=== PATIENT | female | born 1955 | race Caucasian/White ===

== ENCOUNTER 2018-08-15 14:45 | Inpatient (IN) | payer OTHER ==
[2018-08-15 14:50] VITALS: BMI 46.0
--- NOTE | 2018-08-15 14:57 | PDOC ---
Rapid Medical Evaluation Chief Complaint: Hemorrhoids Time Seen by Provider: 08/15/18 14:51 Medical Evaluation: Allergies Allergy/AdvReac Type Severity Reaction Status Date / Time No Known Allergies Allergy Verified 08/15/18 14:50 Vital Signs Temp Pulse Resp BP Pulse Ox 98.0 F 104 H 18 154/85 96 08/15/18 14:47 08/15/18 14:47 08/15/18 14:47 08/15/18 14:47 08/15/18 14:47 08/15/18 14:53 I have performed a brief in-person evaluation of this patient. The patient presents with a chief complaint of: sent for admission for Hemorhoidectomy tomorrow - thrombosed hemorhoid Pertinent physical exam findings: pain/ amb I have ordered the following: CBC, CmP, InR, Type and screen, CXR, UA The patient will proceed to the ED for further evaluation. Discharge Disposition - Diagnosis Thrombosed hemorrhoids - Referrals - Patient Instructions - Post Discharge Activity
--- NOTE | 2018-08-15 15:03 | PDOC ---
History of Present Illness - General Chief Complaint: Hemorrhoids Stated Complaint: SENT BY PCP Time Seen by Provider: 08/15/18 14:51 - History of Present Illness Initial Comments: 08/15/18 16:31 The patient is a 63 year old female with a history of HTN who presents for admission for a thrombosed hemorrhoid. The patient reports a 10 day history of worsening rectal pain especially with straining. She was evaluated by her surgeon Dr. Forbes who sent the patient for admission for an inpatient thrombectomy in the OR tomorrow. The patient otherwise denies fevers, chills, SOB, chest, pain, nausea, vomiting, abdominal pain, or changes with urination. Past History - Past Medical History Allergies/Adverse Reactions: Allergies Allergy/AdvReac Type Severity Reaction Status Date / Time No Known Allergies Allergy Verified 08/15/18 14:50 Home Medications: Ambulatory Orders Aspirin [ASA -] 81 mg PO DAILY 08/15/18 Atorvastatin Ca [Lipitor] 20 mg PO HS 08/15/18 Losartan Potassium 50 mg PO DAILY 08/15/18 Metoprolol Succinate 25 mg PO DAILY 08/15/18 Ranitidine [Zantac -] 150 mg PO DAILY 08/15/18 COPD: No HTN: Yes - Surgical History Appendectomy: Yes - Suicide/Smoking/Psychosocial Hx Smoking History: Never smoked Review of Systems - Review of Systems Comments:: 08/15/18 16:33 Constitutional: No fevers, chills, fatigue, malaise HEENT: No Rhinorrhea, nasal congestion, visual changes Cardiovascular: No chest pain, syncope, palpitations, lightheadedness Respiratory: No Cough, SOB, Hemoptysis, Gastrointestinal: Rectal pain. No Abdominal pain, Nausea, Vomiting, Constipation, Diarrhea, Melena Genitourinary: No Dysuria, Frequency, Urgency, Hesitancy, Hematuria, Flank pain Musculoskeletal: No Myalgia, arthralgia Skin: No rashes, itching, bruising, pallor Neurologic: No Headache, Dizziness, Numbness, Weakness, or Tingling Psychiatric: No Hallucinations. No SI or HI *Physical Exam - Vital Signs Last Vital Signs Temp Pulse Resp BP Pulse Ox 98.0 F 104 H 18 154/85 96 08/15/18 14:47 08/15/18 14:47 08/15/18 14:47 08/15/18 14:47 08/15/18 14:47 - Physical Exam Comments: 08/15/18 16:33 General Appearance: Nourished. No Apparent Distress HEENT: No Pharyngeal Erythema, Tonsillar Exudate, Tonsillar Erythema Neck: No Cervical Lymphadenopathy Respiratory/Chest: Lungs Clear, Normal Breath Sounds. No Crackles, Rales, Rhonchi, Wheezing Cardiovascular: Regular Rhythm, Regular Rate. No Murmur, Gallops, Rubs Gastrointestinal/Abdominal: Thrombosed rectal hemorrhoid noted on exam. Normal Bowel Sounds, Soft. No Guarding, Rebound, Tenderness Musculoskeletal: No CVA Tenderness Extremity: Normal Capillary Refill Integumentary: Normal Color, Dry, Warm Neurologic: Fully Oriented, Alert, Normal Mood/Affect, Normal Response, ED Treatment Course - LABORATORY CBC & Chemistry Diagram: 08/15/18 15:28 08/15/18 17:19 Medical Decision Making - Medical Decision Making 08/15/18 16:34 The patient is a 63 year old female with a history of HTN who presents for admission for a thrombosed hemorrhoid. Given the patient's history and physical exam, we will obtain a cbc, cmp, chest plain film, coags, ua, ekg to evaluate further. The patient will require admission for further management. We will continue to monitor and reassess while here in the ED. 08/15/18 18:56 CBC, cmp, coags are unremarkable. We discussed the case with the admitting team who accepted the patient for admission. The patient's surgeon Dr. Forbes has evaluated the patient here in the ED. *DC/Admit/Observation/Transfer Diagnosis at time of Disposition: Thrombosed hemorrhoids - Discharge Dispostion Condition at time of disposition: Stable Decision to Admit order: Yes - Referrals Referrals: Ayush Bush [Primary Care Provider] - - Patient Instructions - Post Discharge Activity
[2018-08-15 15:43] LABS: BASO % 0.8 % (0-2.0); EOS % 0.5 % (0-4.5); HEMATOCRIT 40.8 % (32.4-45.2); HEMOGLOBIN 14.1 GM/dL (10.7-15.3); LYMPH % 39.4 % (8-40); MCH 32.3 pg (25.7-33.7); MCHC 34.5 g/dl (32.0-36.0); MEAN CELL VOLUME 93.6 fl (80-96); MEAN PLT VOLUME 9.1 fl (7.5-11.1); MONO % 9.1 % (3.8-10.2); NEUT % 50.2 % (42.8-82.8); PLATELET COUNT 236 K/MM3 (134-434); RBC 4.36 M/mm3 (3.60-5.2); RDW 13.3 % (11.6-15.6); WHITE BLOOD COUNT 5.8 K/mm3 (4.0-10.0)
[2018-08-15] MEDS ORDERED: ACETAMINOPHEN 1000 MG/100 ML VIAL (NON FORMULARY) IVPB ONE (16:04)
[2018-08-15] MEDS ORDERED: ACETAMINOPHEN INJECTION 100 ML IVPB ONE (16:46)
--- NOTE | 2018-08-15 17:04 | PDOC ---
Attending Attestation - Resident Resident Name: Jayy Espino - ED Attending Attestation I have performed the following: I have examined & evaluated the patient, The case was reviewed & discussed with the resident, I agree w/resident's findings & plan, Exceptions are as noted - Medical Decision Making 08/15/18 17:02 A portion of this note was documented by scribe services under my direction. I have reviewed the details of the note, within reason, and agree with the documentation with the following case summary and management plan written by me. Patient treated in the ED. Nursing notes are reviewed and incorporated into the medical decision-making. Vital signs reviewed. Peripheral IV access obtained by the nurse, laboratory studies are drawn and sent, reviewed and interpreted by myself. 63-year-old female history of hypertension and hemorrhoids sent information for our tomorrow for hemorrhoid procedure. Currently has no other complaints. This will be operated by Dr. Raghu Forbes. Pre-op labs and admit. <Abel Millan - Last Filed: 08/15/18 17:01> - HPI HPI: 08/15/18 17:04 Patient is a 63 year old female with a significant past medical history of HTN, who presents to the ED with complaints of increased rectal pain. Patient reports experiencing rectal pain that she states began x10 days ago and has been gradually increasing in intensity over time, prompting her to come into the ED for further evaluation. She reports being evaluated by her Surgeon Dr. Forbes, stating he sent her into the ED to be admitted to be sent to the OR for a thrombectomy scheduled for tomorrow. Denies chest pain, Sob. Denies nausea, vomiting. Denies contact with sick individuals, out of state travelling. Denies fevers, chills. Denies dysuria, hematuria. Denies diarrhea, constipation. Denies any other symptoms. Allergies: None Social history: No smoking. No alcohol. No illicit drugs. Surgical history: Appendectomy PMD: Dr. Ayush Bush - Physicial Exam PE: 08/15/18 17:04 GENERAL: Awake, alert, and fully oriented, in no acute distress HEAD: No signs of trauma EYES: PERRLA, EOMI, sclera anicteric, conjunctiva clear ENT: Auricles normal inspection, hearing grossly normal, nares patent.Moist mucosa NECK: Normal ROM, supple, JVD, or masses EXTREMITIES: Normal range of motion, no edema. No clubbing or cyanosis. No cords, erythema, or tenderness NEUROLOGICAL: Cranial nerves II through XII grossly intact. Normal speech, normal gait SKIN: Warm, Dry, normal turgor, no rashes or lesions noted. <iNcolas Gupta - Last Filed: 08/15/18 17:04>
[2018-08-15 18:25] LABS: ALK PHOS 98 U/L (45-117); ANION GAP 8 MMOL/L (8-16); BILIRUBIN,TOTAL 0.7 mg/dL (0.2-1); BLOOD UREA NITROGEN 14 mg/dL (7-18); CALCIUM 9.6 mg/dL (8.5-10.1); CHLORIDE 103 mmol/L (98-107); CO2 31 mmol/L (21-32); CREATININE 1.1 mg/dL (0.55-1.3); GLUCOSE,RANDOM 112 mg/dL (74-106); POTASSIUM 4.5 mmol/L (3.5-5.1); SGOT/AST 37 U/L (15-37); SGPT/ALT 37 U/L (13-61); SODIUM 142 mmol/L (136-145); TOT PROT 7.8 g/dl (6.4-8.2)
[2018-08-15] MEDS ORDERED: BISACODYL 5 MG TABLET.DR (FP) PO ONE (18:46)
--- NOTE | 2018-08-15 18:52 | CONSULT ---
Consult Consult Specialty:: Surgery Reason for Consultation:: Thrombosed hemorrhoids - History of Present Illness History of Present Illness: C/O pain and swelling around the rectum and anal canal for over 10 days. - History Source History Provided By: Patient, Family Member - Smoking History Smoking history: Never smoked Home Medications - Allergies Allergies/Adverse Reactions: Allergies Allergy/AdvReac Type Severity Reaction Status Date / Time No Known Allergies Allergy Verified 08/15/18 14:50 - Home Medications Home Medications: Ambulatory Orders Aspirin [ASA -] 81 mg PO DAILY 08/15/18 Atorvastatin Ca [Lipitor] 20 mg PO HS 08/15/18 Losartan Potassium 50 mg PO DAILY 08/15/18 Metoprolol Succinate 25 mg PO DAILY 08/15/18 Ranitidine [Zantac -] 150 mg PO DAILY 08/15/18 Physical Exam Vital Signs: Vital Signs Temperature 98.0 F 08/15/18 14:47 Pulse Rate 104 H 08/15/18 14:47 Respiratory Rate 18 08/15/18 14:47 Blood Pressure 154/85 08/15/18 14:47 O2 Sat by Pulse Oximetry (%) 96 08/15/18 14:47 Gastrointestinal: Yes: Hemorrhoids (:arge thrombosed internal-external hemorrhoid at 5 O'clock position, not resoving, and very tender.) Labs: CBC, BMP 08/15/18 15:28 08/15/18 17:19 Problem List - Problems (1) Thrombosed hemorrhoids Code(s): K64.5 - PERIANAL VENOUS THROMBOSIS Assessment/Plan Thrombosed hemorrhoids, Plan: Excision of thrombosed hemorrhoids tomorrow, proctosigmoidoscopy, tomorrow on 08/16/2018.
[2018-08-15 19:20] LABS: INR 1.16 (0.83-1.09); PROTHROMBIN TIME (PATIENT) 13.7 SEC (9.7-13.0)
--- NOTE | 2018-08-15 19:25 | PN ---
Teaching Attending Note Name of Resident: Maria G Edwards ATTENDING PHYSICIAN STATEMENT I saw and evaluated the patient. I reviewed the resident's note and discussed the case with the resident. I agree with the resident's findings and plan as documented. SUBJECTIVE: Patient is a 63 year old woman with a history of HTN who presents for admission for a thrombosed rectal hemorrhoid. The patient reports a 10 day history of worsening rectal pain especially with straining. She was evaluated by her surgeon Dr. Forbes who sent the patient for admission for an inpatient thrombectomy in the OR tomorrow. The patient otherwise denies fevers, chills, SOB, chest, pain, nausea, vomiting, abdominal pain, or changes with urination. OBJECTIVE: Alert Vital Signs Period Temp Pulse Resp BP Sys/Sun Pulse Ox Last 24 Hr 98.0 F 104 18 154/85 96 HEENT: No Jaundice, eye redness or discharge, PERRLA, EOMI. Normocephalic, atraumatic. External ears are normal and hearing is grossly intact. No nasal discharge. Neck: Supple, nontender. No palpable adenopathy or thyromegaly. No JVD Chest: Good effort. Clear to auscultation and percussion. Heart: Regular. No S3, rub or murmur Abdomen: Not distended, soft, nontender and no HSM. No rebound or guarding. Normoactive bowel sounds. Ext: Peripheral pulses intact. No leg edema. Has thrombosed external hemorrhoids with tender rectal exam. Skin: Warm and dry. No petechiae, rash or ecchymosis. Neuro: Alert. Oriented x3. CN 2-12 grossly intact. Sensation grossly intact in all four extremities and DTR are symmetric. Home Medications Medication Instructions Recorded Aspirin [ASA -] 81 mg PO DAILY 08/15/18 Atorvastatin Ca [Lipitor] 20 mg PO HS 08/15/18 Losartan Potassium 50 mg PO DAILY 08/15/18 Metoprolol Succinate 25 mg PO DAILY 08/15/18 Ranitidine [Zantac -] 150 mg PO DAILY 08/15/18 Abnormal Lab Results 08/15/18 08/15/18 15:28 17:19 PT with INR 13.70 H INR 1.16 H Random Glucose 112 H ASSESSMENT AND PLAN: 1. Thrombosed rectal hemorrhoids - Scheduled for surgical excision tomorrow. Send blood for type and cross, get EKG, keep her NPO. Restart home antihypertensive drugs. 2. Morbid Obesity - Will provide patient all the necessary assistance, counseling and positive reinforcement to facilitate weight loss. Consult equipment application specialist. 3. DVT prophylaxis - Heparin 5000u sq tid; SCD, TEDs. 4. Advance directives - Full code
[2018-08-15] MEDS ORDERED: HEPARIN NA (PORCINE) 5,000 UNITS/ML 1ML VIAL SQ ONE (20:23)
--- NOTE | 2018-08-15 20:28 | HP ---
CHIEF COMPLAINT: sent from Dr. Forbes for excision of thrombosed hemorrhoids PCP: HISTORY OF PRESENT ILLNESS: Patient is a 63 y/o female with a history of hypertension who presents from the office of Dr. Forbes for the excision of thrombosed hemorrhoids tomorrow. Patient has perirectal pain that she describes as pinching and hot. She has never had this pain before and it does not radiate. Creams have not helped the pain and straining makes the pain worse. The pain began 10 days ago. She first saw her GI doctor in the [place] who prescribed her a cream that she reports did not help. She followed up with the ED who examined her and she reports the pain was much worse after the examination. She saw Dr. Forbes on Sunday and again today who decided she should come to the hospital for surgery tomorrow. Patient has had no adverse reactions to past surgeries, only allergic reaction to contrast in which she went into "shock". Patient denies fever, chills, chest pain, shortness of breath, or headache. Patient did not take her home medications today. ER course was notable for: (1) ofirmev (2) ducolax (3) Recent Travel: PAST MEDICAL HISTORY: HTN PAST SURGICAL HISTORY: Csection, tonsilecomy, R shoulder arthroscopy, lithotripsy Social History: Smoking: denies Alcohol: denies Drugs: Family History: Allergies Contrast- shock HOME MEDICATIONS: Home Medications Medication Instructions Recorded Aspirin [ASA -] 81 mg PO DAILY 08/15/18 Atorvastatin Ca [Lipitor] 20 mg PO HS 08/15/18 Losartan Potassium 50 mg PO DAILY 08/15/18 Metoprolol Succinate 25 mg PO DAILY 08/15/18 Ranitidine [Zantac -] 150 mg PO DAILY 08/15/18 REVIEW OF SYSTEMS CONSTITUTIONAL: Absent: fever, chills, diaphoresis, generalized weakness, malaise, loss of appetite, weight change HEENT: Absent: rhinorrhea, nasal congestion, throat pain, throat swelling, difficulty swallowing, mouth swelling, ear pain, eye pain, visual changes CARDIOVASCULAR: Absent: chest pain, syncope, palpitations, irregular heart rate, lightheadedness , peripheral edema RESPIRATORY: Absent: cough, shortness of breath, dyspnea with exertion, orthopnea, wheezing, stridor, hemoptysis GASTROINTESTINAL: Absent: abdominal pain, abdominal distension, nausea, vomiting, diarrhea, constipation, melena, hematochezia GENITOURINARY: rectal pain Absent: dysuria, frequency, urgency, hesitancy, hematuria, flank pain, genital pain MUSCULOSKELETAL: Absent: myalgia, arthralgia, joint swelling, back pain, neck pain SKIN: Absent: rash, itching, pallor HEMATOLOGIC/IMMUNOLOGIC: Absent: easy bleeding, easy bruising, lymphadenopathy, frequent infections ENDOCRINE: Absent: unexplained weight gain, unexplained weight loss, heat intolerance, cold intolerance NEUROLOGIC: Absent: headache, focal weakness or paresthesias, dizziness, unsteady gait, seizure, mental status changes, bladder or bowel incontinence PSYCHIATRIC: Absent: anxiety, depression, suicidal or homicidal ideation, hallucinations. PHYSICAL EXAMINATION Vital Signs - 24 hr 08/15/18 14:47 Temperature 98.0 F Pulse Rate 104 H Respiratory 18 Rate Blood Pressure 154/85 O2 Sat by Pulse 96 Oximetry (%) GENERAL: Awake, alert, and fully oriented, in no acute distress. HEAD: Normal with no signs of trauma. EYES: Pupils equal, round and reactive to light, extraocular movements intact EARS, NOSE, THROAT: Moist mucous membranes. LUNGS: Breath sounds equal, clear to auscultation bilaterally. No wheezes, and no crackles. No accessory muscle use. HEART: Regular rate and rhythm, normal S1 and S2 without murmur, rub or gallop. ABDOMEN: Soft, nontender, not distended, normoactive bowel sounds, no guarding, no rebound, no masses. RECTAl: prolapsed internal LOWER EXTREMITIES: 2+ pulses, warm, well-perfused. No calf tenderness. No peripheral edema. NEUROLOGICAL: Cranial nerves II-XII intact. Normal speech. Normal gait. PSYCHIATRIC: Cooperative. Good eye contact. Appropriate mood and affect. SKIN: Warm, dry, normal turgor, no rashes or lesions noted, normal capillary refill. Laboratory Results - last 24 hr ASSESSMENT/PLAN: Patient is a 63 y/o female with a past medical history of hypertension who presents from Dr. Forbes's office for excision of thrombosed hemorrhoids. #Thrombosed hemorrhoids - surgery tomorrow with Dr. Forbes: excision of thrombosed hemorrhoids, proctosigmoidoscopy - f/u EKG, CXR - CBC, CMP, type/screen - NPO after midnight - [place]: .1% risk of [place] or cardiac arrest in 30 days #HTN - restart home meds - metoprolol, losartan #HTN - atorvastain hs #DVT ppx - heparin 5,000 once, held after midnight - SCD's Visit type - Emergency Visit Emergency Visit: Yes ED Registration Date: 08/15/18 Care time: The patient presented to the Emergency Department on the above date and was hospitalized for further evaluation of their emergent condition. - New Patient This patient is new to me today: Yes Date on this admission: 08/16/18 - Critical Care Critical Care patient: No
[2018-08-15] MEDS ORDERED: RANITIDINE HCL 150 MG TABLET (FP) ONE (21:06)
[2018-08-15] MEDS ORDERED: ASPIRIN 81 MG CHEWABLE TABLETS ONE (21:06)
[2018-08-15] MEDS ORDERED: HEPARIN NA (PORCINE) 5,000 UNITS/ML 1ML VIAL ONE (21:07)
[2018-08-15] MEDS: LOSARTAN POTASSIUM 50 MG TABLET (FP) PO SCH (21:49)
[2018-08-15] MEDS: metoPROLOL SUCCINATE 25 MG TAB.SR.24H (FP) PO SCH (21:49)
[2018-08-15] MEDS: ASPIRIN 81 MG CHEWABLE TABLETS PO SCH (21:49)
[2018-08-15] MEDS: RANITIDINE HCL 150 MG TABLET (FP) PO SCH (21:50)
[2018-08-15] MEDS ORDERED: ATORVASTATIN CA 10 MG TABLET (FP) ONE (21:57)
[2018-08-15] MEDS ORDERED: ACETAMINOPHEN 325 MG TABLET (FP) PO PRN (22:00)
[2018-08-15] MEDS ORDERED: ATORVASTATIN CA 20 MG TABLET (FP) PO SCH (22:00)
[2018-08-16 07:12] LABS: BASO % 0.4 % (0-2.0); LYMPH % 46.7 % (8-40); MCH 31.3 pg (25.7-33.7); MCHC 33.2 g/dl (32.0-36.0); MEAN CELL VOLUME 94.2 fl (80-96); MEAN PLT VOLUME 8.2 fl (7.5-11.1); NEUT % 38.9 % (42.8-82.8); PLATELET COUNT 195 K/MM3 (134-434); RBC 4.14 M/mm3 (3.60-5.2); RDW 12.9 % (11.6-15.6); WHITE BLOOD COUNT 5.2 K/mm3 (4.0-10.0)
--- NOTE | 2018-08-16 07:41 | EKG ---
Test Reason : Blood Pressure : / mmHG Vent. Rate : 078 BPM Atrial Rate : 078 BPM P-R Int : 150 ms QRS Dur : 082 ms QT Int : 396 ms P-R-T Axes : 021 020 025 degrees QTc Int : 451 ms NORMAL SINUS RHYTHM NONSPECIFIC ST AND T WAVE ABNORMALITY ABNORMAL ECG NO PREVIOUS ECGS AVAILABLE Confirmed by NELIA KUHN MD ([id number]) on 08/16/2018 7:41:14 AM Referred By: Confirmed By:NELIA KUHN MD
[2018-08-16 08:07] LABS: ALBUMIN 3.7 g/dl (3.4-5.0); ALK PHOS 89 U/L (45-117); ANION GAP 10 MMOL/L (8-16); BILIRUBIN,TOTAL 0.8 mg/dL (0.2-1); BLOOD UREA NITROGEN 15 mg/dL (7-18); CALCIUM 8.9 mg/dL (8.5-10.1); CHLORIDE 102 mmol/L (98-107); CO2 28 mmol/L (21-32); GLUCOSE,RANDOM 131 mg/dL (74-106); POTASSIUM 3.6 mmol/L (3.5-5.1); SGOT/AST 27 U/L (15-37); SGPT/ALT 34 U/L (13-61); SODIUM 140 mmol/L (136-145); TOT PROT 7.3 g/dl (6.4-8.2)
[2018-08-16] MEDS: RANITIDINE HCL 150 MG TABLET (FP) PO SCH (09:38)
[2018-08-16] MEDS: ASPIRIN 81 MG CHEWABLE TABLETS PO SCH (10:18)
[2018-08-16 10:40] LABS: URINE APPEARANCE SLCLOUDY; URINE BILIRUBIN NEGATIVE (<2.0 mg/dL); URINE COLOR YELLOW; URINE GLUCOSE (UA) NEGATIVE (NEGATIVE); URINE KETONE NEGATIVE (NEGATIVE); URINE LEUK ESTERASE NEGATIVE (NEGATIVE); URINE NITRITE NEGATIVE (NEGATIVE); URINE PROTEIN NEGATIVE (NEGATIVE)
[2018-08-16] MEDS: LOSARTAN POTASSIUM 50 MG TABLET (FP) PO SCH (11:18)
[2018-08-16] MEDS: metoPROLOL SUCCINATE 25 MG TAB.SR.24H (FP) PO SCH (11:18)
[2018-08-16] MEDS ORDERED: BUPIVACAINE HCL/PF 0.5% (5MG/ML) 10 ML VIAL ONE (15:51)
[2018-08-16] MEDS ORDERED: ONDANSETRON 4 MG/2 ML VIAL IVPUSH PRN ×2 (16:08→17:35)
[2018-08-16] MEDS ORDERED: PROMETHAZINE HCL 25 MG/1 ML VIAL IVPB PRN ×2 (16:08→17:35)
[2018-08-16] MEDS ORDERED: MIDAZOLAM HCL 2 MG/2 ML SINGLE DOSE VIAL ONE (16:15)
[2018-08-16] MEDS ORDERED: LACTATED RINGERS SOLUTION 1,000 ML IV SCH (16:15)
[2018-08-16] MEDS ORDERED: SODIUM CHLORIDE 0.9% P/F 10 ML VIAL IJ ONE (16:37)
[2018-08-16] MEDS ORDERED: ceFAZolin SODIUM 1 GM VIAL ONE (16:37)
[2018-08-16] MEDS ORDERED: ceFAZolin SODIUM 1 GM VIAL IVPB ONE (16:38)
--- NOTE | 2018-08-16 16:39 | PN ---
Physical Exam: SUBJECTIVE: Patient seen and examined at bedside. no acute events overnight- patient is still hvaing rectal pain. patient is going for hemorrhoid removal surgery today with Dr Forbes. she denies any CP/SOB/N/V fevers or chills OBJECTIVE: Vital Signs Period Temp Pulse Resp BP Sys/Sun Pulse Ox Last 24 Hr 97.6 F-98.7 F 71-83 18-20 101-126/56-71 97-98 GENERAL: The patient is awake, alert, and fully oriented, in no acute distress. EYES: no scleral icterus. NECK: no JVD, no lymphadenopathy LUNGS: CTa B/L; no rales, rhonchi or wheezing. HEART: Regular rate and rhythm, S1, S2 without murmur, rub or gallop. ABDOMEN: Soft, nontender, nondistended, normoactive bowel sounds, no guarding, no rebound, no hepatosplenomegaly, no masses. EXTREMITIES: 2+ pulses, warm, well-perfused, no edema. PSYCH: Normal mood, normal affect. SKIN: Warm, dry, normal turgor, no rashes or lesions noted Laboratory Results - last 24 hr 08/15/18 08/15/18 08/15/18 09:34 15:28 15:28 WBC RBC Hgb Hct MCV MCH MCHC RDW Plt Count MPV Absolute Neuts (auto) Neutrophils % Lymphocytes % Monocytes % Eosinophils % Basophils % Nucleated RBC % PT with INR 13.70 H INR 1.16 H Sodium Cancelled Potassium Cancelled Chloride Cancelled Carbon Dioxide Cancelled Anion Gap Cancelled BUN Cancelled Creatinine Cancelled Creat Clearance w eGFR Cancelled Random Glucose Cancelled Calcium Cancelled Total Bilirubin Cancelled AST Cancelled ALT Cancelled Alkaline Phosphatase Cancelled Total Protein Cancelled Albumin Cancelled Urine Color Yellow Urine Appearance Slcloudy Urine pH 5.0 Ur Specific [place] 1.023 Urine Protein Negative Urine Glucose (UA) Negative Urine Ketones Negative Urine Blood Negative Urine Nitrite Negative Urine Bilirubin Negative Urine Urobilinogen 2.0 H Ur Leukocyte Esterase Negative Blood Type Antibody Screen 08/15/18 08/16/18 08/16/18 17:19 06:00 06:00 WBC 5.2 RBC 4.14 Hgb 13.0 Hct 39.0 MCV 94.2 MCH 31.3 MCHC 33.2 RDW 12.9 Plt Count 195 MPV 8.2 Absolute Neuts (auto) 2.0 Neutrophils % 38.9 L D Lymphocytes % 46.7 H Monocytes % 13.0 H Eosinophils % 1.0 D Basophils % 0.4 Nucleated RBC % 0 PT with INR INR Sodium 142 140 Potassium 4.5 3.6 Chloride 103 102 Carbon Dioxide 31 28 Anion Gap 8 10 BUN 14 15 Creatinine 1.1 1.0 Creat Clearance w eGFR 50.01 55.82 Random Glucose 112 H 131 H Calcium 9.6 8.9 Total Bilirubin 0.7 0.8 AST 37 27 ALT 37 34 Alkaline Phosphatase 98 89 Total Protein 7.8 7.3 Albumin 4.0 3.7 Urine Color Urine Appearance Urine pH Ur Specific [place] Urine Protein Urine Glucose (UA) Urine Ketones Urine Blood Urine Nitrite Urine Bilirubin Urine Urobilinogen Ur Leukocyte Esterase Blood Type Antibody Screen 08/16/18 08/16/18 06:00 09:22 WBC RBC Hgb Hct MCV MCH MCHC RDW Plt Count MPV Absolute Neuts (auto) Neutrophils % Lymphocytes % Monocytes % Eosinophils % Basophils % Nucleated RBC % PT with INR INR Sodium Potassium Chloride Carbon Dioxide Anion Gap BUN Creatinine Creat Clearance w eGFR Random Glucose Calcium Total Bilirubin AST ALT Alkaline Phosphatase Total Protein Albumin Urine Color Urine Appearance Urine pH Ur Specific [place] Urine Protein Urine Glucose (UA) Urine Ketones Urine Blood Urine Nitrite Urine Bilirubin Urine Urobilinogen Ur Leukocyte Esterase Blood Type O POSITIVE O POSITIVE Antibody Screen Negative Active Medications Generic Name Dose Route Start Last Admin Trade Name Freq PRN Reason Stop Dose Admin Acetaminophen 650 mg 08/15/18 22:00 Tylenol - PO Q6H PRN PAIN LEVEL 7 - 10 Aspirin 81 mg 08/15/18 20:15 08/16/18 10:18 Asa - PO Not Given DAILY [facility] Atorvastatin Calcium 20 mg 08/15/18 22:00 08/15/18 22:01 Lipitor - PO 20 mg HS GIOVANI Administration Fentanyl 50 mcg 08/16/18 16:08 Sublimaze Injection - IVPUSH [id number] PRN PAIN-PACU ORDER X 4 DOSES ONLY Lactated Ringer's 1,000 mls @ 125 mls/hr 08/16/18 16:15 Lactated Ringers Solution IV ASDIR [facility] Losartan Potassium 50 mg 08/15/18 20:15 08/16/18 11:18 Cozaar - PO Not Given DAILY [facility] Metoprolol Succinate 25 mg 08/15/18 20:15 08/16/18 11:18 Toprol Xl - PO Not Given DAILY GIOV[facility] Ondansetron HCl 4 mg 08/16/18 16:08 Zofran Injection IVPUSH Q6H PRN NAUSEA AND/OR VOMITING Promethazine HCl 12.5 mg 08/16/18 16:08 Phenergan Injection - IVPB Q6H PRN NAUSEA-FOR RESCUE AFTER 15 MIN Ranitidine HCl 150 mg 08/15/18 20:15 08/16/18 09:38 Zantac - PO 150 mg DAILY GIOVANI Administration ASSESSMENT/PLAN: Patient is a 63 y/o female with a past medical history of hypertension who presented from Dr. Forbes's office for excision of thrombosed hemorrhoids. #Thrombosed hemorrhoid surgery today with Dr. Forbes: excision of thrombosed hemorrhoids, proctosigmoidoscopy -f/u surgery recs #HTN restart home meds metoprolol, losartan #HTN atorvastain hs #DVT ppx heparin 5,000 SQ Problem List - Problems (1) Thrombosed hemorrhoids Code(s): K64.5 - PERIANAL VENOUS THROMBOSIS Visit type - Emergency Visit Emergency Visit: Yes ED Registration Date: 08/15/18 Care time: The patient presented to the Emergency Department on the above date and was hospitalized for further evaluation of their emergent condition. - New Patient This patient is new to me today: Yes Date on this admission: 08/16/18 - Critical Care Critical Care patient: No
--- NOTE | 2018-08-16 16:55 | PN ---
Teaching Attending Note ATTENDING PHYSICIAN STATEMENT I saw and evaluated the patient. I reviewed the resident's note and discussed the case with the resident. I agree with the resident's findings and plan as documented. SUBJECTIVE: SHE HAS MINIMAL PAIN IN THE RECTAL AREA OBJECTIVE: IN MILD DISTRESS Last Vital Signs Temp Pulse Resp BP Pulse Ox 98.2 F 77 18 115/71 98 08/16/18 15:22 08/16/18 15:22 08/16/18 15:22 08/16/18 15:22 08/16/18 09:00 mmm cvs:s1s2 ctab abd:BS+ N/ND EXT; no edema did not do rectal exam due to the pain CBCD WBC 5.2 K/mm3 (4.0-10.0) 08/16/18 06:00 RBC 4.14 M/mm3 (3.60-5.2) 08/16/18 06:00 Hgb 13.0 GM/dL (10.7-15.3) 08/16/18 06:00 Hct 39.0 % (32.4-45.2) 08/16/18 06:00 MCV 94.2 fl (80-96) 08/16/18 06:00 MCHC 33.2 g/dl (32.0-36.0) 08/16/18 06:00 RDW 12.9 % (11.6-15.6) 08/16/18 06:00 Plt Count 195 K/MM3 (134-434) 08/16/18 06:00 MPV 8.2 fl (7.5-11.1) 08/16/18 06:00 CMP Sodium 140 mmol/L (136-145) 08/16/18 06:00 Potassium 3.6 mmol/L (3.5-5.1) 08/16/18 06:00 Chloride 102 mmol/L (98-107) 08/16/18 06:00 Carbon Dioxide 28 mmol/L (21-32) 08/16/18 06:00 Anion Gap 10 MMOL/L (8-16) 08/16/18 06:00 BUN 15 mg/dL (7-18) 08/16/18 06:00 Creatinine 1.0 mg/dL (0.55-1.3) 08/16/18 06:00 Creat Clearance w eGFR 55.82 (>60) 08/16/18 06:00 Calcium 8.9 mg/dL (8.5-10.1) 08/16/18 06:00 Total Bilirubin 0.8 mg/dL (0.2-1) 08/16/18 06:00 AST 27 U/L (15-37) 08/16/18 06:00 ALT 34 U/L (13-61) 08/16/18 06:00 Alkaline Phosphatase 89 U/L (45-117) 08/16/18 06:00 Total Protein 7.3 g/dl (6.4-8.2) 08/16/18 06:00 Albumin 3.7 g/dl (3.4-5.0) 08/16/18 06:00 ASSESSMENT AND PLAN: 63 Y/O F W HTN,morbid obesity, hemorrhoids, sent from the clinic for hemorhoid thrombosis and is to undergo surgical intervention today. hemorhoid thrombosis: to undergo intervention pain control with morphine Bowel regimen Morbid obesity: encouraged to loose weight, HTN: C/W HOME MEDICATION DVT PPX: heparin Dispo: home tomorrow pending surgery recs
--- NOTE | 2018-08-16 17:26 | OP ---
Operative Note - Note: Operative Date: 08/16/18 Pre-Operative Diagnosis: Acute throbosed , prolapsed hemorrhoid. Operation: Anoscopy with dilation , hemorrhoidectomy x 2 , at 7 and 11o'clock position , ligation of hemorrhoidal bundles and hemorrhoidopexy at 5 o'clock position x1. Findings: Thrombosed interoexternal hemorrhoid at 11 o'clock position , and large hemorrhoids at 7 ,o'clock , excised, and hemorrhoid at 5 o'clock position ligated and pexy performed. Post-Operative Diagnosis: Same as Pre-op Surgeon: Vivi Forbes Anesthesia: Spinal Specimens Removed: Hemorrhoid at 7 and 11o'clock position. Estimated Blood Loss (mls): 25 Operative Report Dictated: Yes
[2018-08-16] MEDS ORDERED: ACETAMINOPHEN 325 MG TABLET (FP) PO PRN (17:35)
[2018-08-16] MEDS ORDERED: traMADol HCL 50 MG TABLET PO ONE (21:40)
[2018-08-16] MEDS ORDERED: ATORVASTATIN CA 20 MG TABLET (FP) PO SCH (22:00)
[2018-08-16] MEDS ORDERED: MORPHINE SULFATE 2 MG/ML VIAL IVPUSH ONE (23:45)
[2018-08-17] MEDS ORDERED: ACETAMINOPHEN 1000 MG/100 ML VIAL (NON FORMULARY) IVPB ONE (05:33)
[2018-08-17 05:53] VITALS: TEMP 98.3
[2018-08-17 07:41] LABS: HEMATOCRIT 35.6 % (32.4-45.2); HEMOGLOBIN 12.1 GM/dL (10.7-15.3); MCH 31.8 pg (25.7-33.7); MCHC 33.8 g/dl (32.0-36.0); MEAN PLT VOLUME 7.7 fl (7.5-11.1); PLATELET COUNT 185 K/MM3 (134-434); RBC 3.79 M/mm3 (3.60-5.2); WHITE BLOOD COUNT 6.8 K/mm3 (4.0-10.0)
[2018-08-17 08:41] LABS: ANION GAP 10 MMOL/L (8-16); BLOOD UREA NITROGEN 13 mg/dL (7-18); CALCIUM 8.3 mg/dL (8.5-10.1); CHLORIDE 104 mmol/L (98-107); CO2 25 mmol/L (21-32); CREATININE 0.7 mg/dL (0.55-1.3); GLUCOSE,RANDOM 117 mg/dL (74-106); POTASSIUM 3.9 mmol/L (3.5-5.1); SODIUM 139 mmol/L (136-145)
[2018-08-17] MEDS ORDERED: IBUPROFEN 400 MG TABLET (FP) PO PRN (09:27)
--- NOTE | 2018-08-17 09:31 | PN ---
Progress Note (short form) - Note Progress Note: Post op day#1.SD/P Hemorrhoidectomy under GA uneventful Patient stable c/o pain so put patient on ibuprofen along with other pain medication.No any anesthesia related problem.Patient Dc from the anesthesia care.
--- NOTE | 2018-08-17 09:43 | PN ---
Progress Note (short form) - Note Progress Note: ASSESSMENT/PLAN: Patient is a 63 y/o female with a past medical history of hypertension who presented from Dr. Forbes's office for excision of thrombosed hemorrhoids. #Thrombosed hemorrhoid surgery today with Dr. Forbes: excision of thrombosed hemorrhoids, proctosigmoidoscopy -f/u surgery recs #HTN restart home meds metoprolol, losartan #HTN atorvastain hs #DVT ppx heparin 5,000 SQ
--- NOTE | 2018-08-17 09:58 | OP ---
DATE OF OPERATION: 08/16/2018 PREOPERATIVE DIAGNOSIS: 1. Prolapsed thrombosed internal and external hemorrhoids. 2. Severe proctalgia. POSTOPERATIVE DIAGNOSIS: Large prolapsed thrombosed hemorrhoids, multiple. OPERATIVE PROCEDURE: 1. Anoscopy with dilation. 2. Hemorrhoidectomy at 7 and 11 o'clock positions. 3. Ligation of hemorrhoidal bundle with hemorrhoidopexy at 5 o'clock position. SURGEON: Linh Forbes MD OPERATIVE DESCRIPTION: This 63-year-old woman had prolapsed thrombosed hemorrhoids for over 10 days. She had pain, and presented to the the emergency room, at [facility]. She ws seen ,evaluated in the emergency room and was sent home with pain medications and sitz bath. She continued to have pain and came to my office. Again, she was recommended to have nonoperative treatment. However, she continued to have pain and prolapse and insisted on excising the thrombosed hemorrhoids. She was admitted through the emergency room yesterday. Patient was seen. She continued to have severe pain in the anorectal area. She had thrombosed internal and external hemorrhoids at 11 o'clock position. Patient was brought in for possible drainage and hemorrhoidectomy. Consent was obtained. She is also morbidly obese. Consent was obtained. Risks, benefits, and complications were discussed with the patient and explained both to her daughter as well as the patient. Patient was given spinal anesthesia, placed in lithotomy position. The perineum was painted and draped. Anoscopy with dilation was performed. She had large hemorrhoids, had a thrombosed hemorrhoid at 11 o'clock position. A classic hemorrhoidectomy was then performed at the hemorrhoids at 7 and 11 o'clock positions using a pyramid-shaped incision, the base being on the outside, and the extension towards the apex of the internal hemorrhoids. The mucosa was incised, and the hemorrhoidal bundle was all the way down to the external sphincter. At this level, the hemorrhoidal bundle was suture ligated with 2-0 chromic catgut sutures, and hemorrhoid excised by division with scissors. The mucosa was then approximated all the way to the periphery to the skin in a continuous locking fashion. At the very end, skin was left open. Similar procedure was done at 7 o'clock position as well. At 5 o'clock, there was only prominent hemorrhoidal bundle. This was suture ligated at the apex with 2-0 chromic catgut sutures, and the hemorrhoidal bundle itself was ligated all the way to the periphery in a running fashion. Finally, the hemorrhoidal bundle was sutured back to its first suture, thus, performing hemorrhoidopexy and pulling the prolapsed bundle back into the rectum proximal to the external sphincter. At the completion, there was no bleeding. Then, 0.5% Marcaine was injected around the surgical procedure as well as into the external sphincter. Estimated blood loss was 10-20 mL. Sponge count and instrument count were correct. Patient was sent to the recovery room in satisfactory and stable condition. Lady [id number] MTDD
[2018-08-17] MEDS ORDERED: ASPIRIN 81 MG CHEWABLE TABLETS PO SCH (10:00)
[2018-08-17] MEDS ORDERED: RANITIDINE HCL 150 MG TABLET (FP) PO SCH (10:00)
[2018-08-17] MEDS ORDERED: metoPROLOL SUCCINATE 25 MG TAB.SR.24H (FP) PO SCH (10:00)
[2018-08-17] MEDS ORDERED: LOSARTAN POTASSIUM 50 MG TABLET (FP) PO SCH (10:00)
[2018-08-17 14:12] VITALS: BP 120/79; PULSE 82
--- NOTE | 2018-08-20 15:09 | PATH ---
Surgical Pathology Report Patient Name: MASHA MCCULLOUGH [facility]. Rec. #: [id number] /Age/Gender: 1955 (Age: 63) / F Account: [id number] Location: [address] [place] [address]/[facility] Taken: 08/16/2018 Received: 08/19/2018 Reported: 08/20/2018 Physicians: Linh Forbes M.D. Specimen(s) Received A: HEMORRHOID 11:00 POSITION B: HEMORRHOID 7:00 POSITION Clinical History Thrombosed hemorrhoids Final Diagnosis A. HEMORRHOID, 11:00, POSITION, HEMORRHOIDECTOMY: POLYPOID SQUAMOUS MUCOSA WITH DILATED THICK WALLED CONGESTED SUBMUCOSAL VESSELS CONSISTENT WITH HEMORRHOIDS. B. HEMORRHOID, 7:00, POSITION, HEMORRHOIDECTOMY: POLYPOID SQUAMOUS MUCOSA WITH DILATED THICK WALLED CONGESTED SUBMUCOSAL VESSELS CONSISTENT WITH HEMORRHOIDS. Electronically Signed Maria G Ashton M.D. Gross Description A. Received in formalin labeled "hemorrhoid 11 o'clock position," is a 1.9 x 1.4 x 1.0 cm cummings, polypoid portion of skin. Sectioning reveals dilated vessels, consistent with hemorrhoids. The base is inked in green and the specimen is trisected and entirely submitted in 2 cassettes. B. Received in formalin labeled "hemorrhoid 7:00," is a 1.4 x 0.9 x 0.3 cm cummings, irregular portion of skin. The base is inked green and the specimen is trisected. The specimen is entirely submitted in one cassette. 08/19/201808/19/2018
== END 2018-08-17 14:00 | disposition home or self-care (01) | DRG 226 ==
LOC: JER 14:45 → JOR 14:45 → JERBED 18:18 → J5S 08-16 01:25
PROVIDERS: ADMIT Internal Medicine; ATTEND Internal Medicine
PROC: 06BY4ZC Excision of Hemorrhoidal Plexus, Percutaneous Endoscopic Approach (ICD-10-PCS; 2018-08-16)
PROC: 06LY4CC Occlusion of Hemorrhoidal Plexus with Extraluminal Device, Percutaneous Endoscopic Approach (ICD-10-PCS; 2018-08-16)
PROC: 0DJD8ZZ Inspection of Lower Intestinal Tract, Via Natural or Artificial Opening Endoscopic (ICD-10-PCS; principal; 2018-08-16 14:30)
DX: K64.5 Perianal venous thrombosis (principal); I10 Essential (primary) hypertension; E66.01 Morbid (severe) obesity due to excess calories; Z68.42 Body mass index [BMI] 45.0-49.9, adult; K64.8 Other hemorrhoids
CPT/HCPCS: 36415; 71046-TC-FY; 80048; 80053; 81003; 85025; 85027; 85610; 86850; 86900; 86901; 88304-TC; 93005; 93010; 94760; 99285-25; J0131; J1644